=== PATIENT | male | born 1950 | race Two or more races ===

== ENCOUNTER 2020-03-30 13:25 | Inpatient (IN) | payer MEDICARE, OTHER ==
[~2020-03-30] VITALS: Ht 182.9 cm; Wt 75.7 kg
[2020-03-30] MEDS ORDERED: ALBU18HF2 IH (13:34)
[2020-03-30] MEDS ORDERED: SODIUM CHLORIDE 0.9% 1000ML BAG (SEPSIS BOLUS) IV ONE (14:15)
[2020-03-30] MEDS ORDERED: ALBUTEROL (0.083%) 2.5MG/3ML NEB HHN ONE (14:15)
[2020-03-30] MEDS ORDERED: IPRATROPIUM/ALBUTEROL 0.5-3(2.5)MG/3ML NEB HHN ONE (14:15)
[2020-03-30 14:33] LABS: BASOPHILS % 0.3 % (0.0-2.0); HEMATOCRIT. 47.7 % (42.0-52.0); HEMOGLOBIN. 16.5 g/dL (14.0-18.0); MEAN CORPUSCULAR HEMOGLOBIN 32.2 pg (28.0-32.0); MEAN CORPUSCULAR VOLUME 93.1 fL (80.0-94.0); MONOCYTES % 4.2 % (2.0-8.0); NEUTROPHILS % 86.5 % (40.0-76.0); PLATELET 210 x1000/uL (130-400); RED BLOOD CELL COUNT 5.12 mill/uL (4.7-6.1)
[2020-03-30 14:36] LABS: CHLORIDE 107 mEq/L (98-107)
[2020-03-30 14:49] LABS: INR 1.2
[2020-03-30] MEDS ORDERED: DOXYCYCLINE HYCLATE 100MG CAPSULE PO ONE (15:45)
[2020-03-30] MEDS ORDERED: CEFTRIAXONE 1 G PREMIX 50 ML IV ONE (15:45)
[2020-03-30 17:42] LABS: CLARITY URINE CLEAR (CLEAR); COLOR URINE DARK YELLOW (YELLOW); KETONES URINE NEGATIVE (NEGATIVE); LEUKOCYTE ESTERASE URINE TRACE (NEGATIVE); NITRITE URINE NEGATIVE (NEGATIVE); OCCULT BLOOD URINE 2+ (NEGATIVE); PROTEIN URINE 1+ (NEGATIVE); SPECIFIC GRAVITY URINE 1.019 (1.005-1.030)
[2020-03-30] MEDS ORDERED: ONDANSETRON HCL 4MG/2ML INJ IV PRN (18:15)
[2020-03-30] MEDS ORDERED: MORPHINE SULFATE 2 MG/ML CPJ (NOT FOR IM USE) IV PRN (18:15)
[2020-03-30] MEDS ORDERED: DOCUSATE SODIUM 100MG CAPSULE PO PRN (18:15)
[2020-03-30] MEDS ORDERED: DIPHENHYDRAMINE 50MG/ML VIAL IV PRN (18:15)
[2020-03-30] MEDS ORDERED: HYDROCODONE/ACETAMINOPHEN 10/325MG TABLET PO PRN (18:15)
[2020-03-30] MEDS ORDERED: CLONIDINE 0.1MG TABLET PO PRN (18:15)
[2020-03-30] MEDS ORDERED: LORAZEPAM 2MG/ML CPJ IV PRN (18:15)
[2020-03-30] MEDS ORDERED: IPRATROPIUM/ALBUTEROL 0.5-3(2.5)MG/3ML NEB HHN PRN (18:15)
[2020-03-30] MEDS ORDERED: CEFTRIAXONE 1 G PREMIX 50 ML IV SCH (18:15)
[2020-03-30] MEDS ORDERED: GUAIFENESIN 200MG/10ML SUGAR FREE UDC PO PRN (18:15)
[2020-03-30] MEDS ORDERED: AZITHROMYCIN 500 MG in DEXT 5% WATER 250 ML IV SCH (18:15)
[2020-03-30] MEDS ORDERED: ACETAMINOPHEN 325MG TABLET PO PRN (18:15)
[2020-03-30] MEDS ORDERED: MAGNESIUM/ALUMINUM HYDROXIDE/SIMETHICONE 30ML UDC PO PRN (18:15)
[2020-03-30] MEDS: ENOXAPARIN 40MG/0.4ML SYR SUBCUT SCH (19:10)
[2020-03-30 21:05] VITALS: BP 129/87
[2020-03-30] MEDS ORDERED: ALBUTEROL 6.7GM HFA INHALER ORI PRN (22:00)
[2020-03-30] MEDS ORDERED: TAMS-11 PO (22:02)
[2020-03-30] MEDS: SODIUM CHLORIDE 0.9% INJ 3ML FLUSH IVF SCH (23:01)
[2020-03-31] VITALS (7 sets, daily range): BP systolic 93–128; BP diastolic 54–74
[2020-03-31] MEDS: SODIUM CHLORIDE 0.9% INJ 3ML FLUSH IVF SCH ×3 (05:57→22:14)
[2020-03-31 06:22] LABS: HEMATOCRIT. 41.4 % (42.0-52.0); MEAN CORPUSCULAR VOLUME 94.7 fL (80.0-94.0); MEAN PLATELET VOLUME 8.5 fl (7.4-10.4); PLATELET 159 x1000/uL (130-400); RED BLOOD CELL COUNT 4.37 mill/uL (4.7-6.1); RED CELL DISTRIBUTION WIDTH 13.8 % (11.6-14.6)
[2020-03-31 07:33] LABS: CHLORIDE 109 mEq/L (98-107)
[2020-03-31 09:48] LABS: BG BASE EXCESS -5.2 mmol/L (-2.0-2.0); BG CARBOXYHEMOGLOBIN 0.2 % (0.5-1.5); BG FRACTION INSPIRED OXYGEN 100; BG HCO3 ACT 18.5 mmol/L (22.0-26.0); BG METHEMOGLOBIN 0.3 % (0.0-1.5); BG OXYHEMOGLOBIN 98.5 % (94.0-97.0); BG PCO2 31.3 mmHg (35.0-45.0); BG PO2 172.5 mmHg (75.0-100.0); BG SAMPLE SITE RIGHT BRACHIAL; BG TOTAL HEMOGLOBIN 14.5 g/dL (12.0-18.0); BG VENT MODE MASK - NRB
[2020-03-31 10:53] LABS: T4 FREE 0.94 ng/dL (0.76-1.46)
[2020-03-31] MEDS: TAMSULOSIN HCL 0.4MG SR CAPSULE PO SCH (11:58)
[2020-03-31 14:57] LABS: PLATELET ESTIMATE NORMAL
[2020-03-31 17:58] LABS: CREATINE KINASE 353 IU/L (39-308)
[2020-03-31 18:00] LABS: CREATINE KINASE MB FRACTION 3.9 ng/mL (0.5-3.6)
[2020-03-31] MEDS ORDERED: CEFTRIAXONE 1,000 MG in DEXTROSE 5% WATER 50 ML IV SCH (19:00)
[2020-03-31] MEDS: ENOXAPARIN 40MG/0.4ML SYR SUBCUT SCH (19:02)
[2020-03-31] MEDS ORDERED: AZITHROMYCIN 250 MG in DEXT 5% WATER 250 ML IV SCH (20:00)
[2020-03-31] MEDS ORDERED: AZITHROMYCIN 500MG in DEXTROSE 5% WATER 250ML IV SCH (20:00)
[2020-03-31 23:28] LABS: CREATINE KINASE 244 IU/L (39-308)
[2020-03-31 23:29] LABS: CREATINE KINASE MB FRACTION 3.3 ng/mL (0.5-3.6)
[2020-04-01] VITALS (7 sets, daily range): BP systolic 86–116; BP diastolic 5–70
[2020-04-01] MEDS: SODIUM CHLORIDE 0.9% INJ 3ML FLUSH IVF SCH ×3 (06:35→21:23)
[2020-04-01 07:13] LABS: BASOPHILS % 0.5 % (0.0-2.0); EOSINOPHILS % 0.5 % (0.0-5.0); HEMATOCRIT. 39.8 % (42.0-52.0); HEMOGLOBIN. 13.5 g/dL (14.0-18.0); LYMPHOCYTES % 8.8 % (20.0-50.0); MEAN CORPUSCULAR HEMOGLOBIN 32.2 pg (28.0-32.0); MEAN CORPUSCULAR VOLUME 94.8 fL (80.0-94.0); MEAN PLATELET VOLUME 9.7 fl (7.4-10.4); MONOCYTES % 4.8 % (2.0-8.0); NEUTROPHILS % 85.4 % (40.0-76.0); PLATELET 150 x1000/uL (130-400)
[2020-04-01 08:02] LABS: CHLORIDE 108 mEq/L (98-107)
[2020-04-01 08:11] LABS: CREATINE KINASE 156 IU/L (39-308)
[2020-04-01 08:13] LABS: CREATINE KINASE MB FRACTION 2.2 ng/mL (0.5-3.6)
[2020-04-01] MEDS: TAMSULOSIN HCL 0.4MG SR CAPSULE PO SCH (08:42)
[2020-04-01 10:03] LABS: BG BASE EXCESS -1.2 mmol/L (-2.0-2.0); BG CARBOXYHEMOGLOBIN 0.3 % (0.5-1.5); BG DEOXYHEMOGLOBIN 1.6 % (0.0-5.0); BG FRACTION INSPIRED OXYGEN 100; BG HCO3 ACT 22.6 mmol/L (22.0-26.0); BG METHEMOGLOBIN 0.5 % (0.0-1.5); BG OXYGEN SATURATION 98.4 % (92.0-98.5); BG OXYHEMOGLOBIN 97.6 % (94.0-97.0); BG PH 7.427 (7.350-7.450); BG PO2 136.7 mmHg (75.0-100.0); BG SAMPLE SITE LEFT BRACHIAL; BG TOTAL HEMOGLOBIN 13.3 g/dL (12.0-18.0); BG VENT MODE MASK - NRB
[2020-04-01] MEDS ORDERED: ALBUTEROL (0.083%) 2.5MG/3ML NEB HHN PRN (15:00)
[2020-04-01] MEDS ORDERED: MAGNESIUM/ALUMINUM HYDROXIDE/SIMETHICONE 30ML UDC PO PRN (15:15)
[2020-04-01] MEDS ORDERED: DIPHENHYDRAMINE 50MG/ML VIAL IV PRN (15:15)
[2020-04-01] MEDS ORDERED: CLONIDINE 0.1MG TABLET PO PRN (15:15)
[2020-04-01] MEDS ORDERED: GUAIFENESIN 200MG/10ML SUGAR FREE UDC PO PRN (15:15)
[2020-04-01] MEDS ORDERED: MORPHINE SULFATE 2 MG/ML CPJ (NOT FOR IM USE) IV PRN (15:15)
[2020-04-01] MEDS ORDERED: LORAZEPAM 2MG/ML CPJ IV PRN (15:15)
[2020-04-01] MEDS ORDERED: DOCUSATE SODIUM 100MG CAPSULE PO PRN (15:15)
[2020-04-01] MEDS ORDERED: ACETAMINOPHEN 325MG TABLET PO PRN (15:15)
[2020-04-01] MEDS ORDERED: ONDANSETRON HCL 4MG/2ML INJ IV PRN (15:15)
[2020-04-01] MEDS ORDERED: HYDROCODONE/ACETAMINOPHEN 10/325MG TABLET PO PRN (15:15)
[2020-04-01] MEDS ORDERED: VANCOMYCIN 1,750 MG in DEXT 5% WATER 250 ML IV NR (17:00)
[2020-04-01] MEDS ORDERED: SODIUM CHLORIDE 0.9% 500 ML IV ONE (17:30)
[2020-04-01] MEDS: PIPERACILLIN/TAZOBACTAM 3.375 G in DEXT 5% WATER 100 ML IV SCH ×2 (18:09→23:57)
[2020-04-01] MEDS: ENOXAPARIN 40MG/0.4ML SYR SUBCUT SCH (18:09)
[2020-04-01] MEDS: IPRATROPIUM/ALBUTEROL 0.5-3(2.5)MG/3ML NEB HHN SCH (20:07)
[2020-04-01] MEDS: BUDESONIDE 0.5MG/2ML NEB HHN SCH (20:08)
[2020-04-02] VITALS: BP 86/53
[2020-04-02] MEDS: THROAT LOZENGES-BENZOCAINE/MENTH/CETYLPYRD CL LOZENGES MM PRN ×2 (00:05→06:09)
[2020-04-02] MEDS: IPRATROPIUM/ALBUTEROL 0.5-3(2.5)MG/3ML NEB HHN SCH ×4 (01:20→21:41)
[2020-04-02] MEDS ORDERED: VANCOMYCIN 1250MG in DEXTROSE 5% WATER 250ML IV SCH ×2 (03:00→18:00)
[2020-04-02 04:00] VITALS: BP 91/59
[2020-04-02] MEDS: SODIUM CHLORIDE 0.9% INJ 3ML FLUSH IVF SCH ×2 (06:09→21:13)
[2020-04-02] MEDS: PIPERACILLIN/TAZOBACTAM 3.375 G in DEXT 5% WATER 100 ML IV SCH ×3 (06:09→18:01)
[2020-04-02 08:00] VITALS: BP 90/57
[2020-04-02] MEDS: BUDESONIDE 0.5MG/2ML NEB HHN SCH ×2 (08:25→21:41)
[2020-04-02] MEDS: TAMSULOSIN HCL 0.4MG SR CAPSULE PO SCH (09:15)
[2020-04-02 12:00] VITALS: BP 91/56
[2020-04-02] MEDS: BENZONATATE 100MG CAPSULE PO SCH ×2 (13:57→21:13)
[2020-04-02] MEDS: SODIUM CHLORIDE 0.9% 1,000 ML IV SCH (13:57)
[2020-04-02 16:00] VITALS: BP 100/63
[2020-04-02] MEDS: ENOXAPARIN 40MG/0.4ML SYR SUBCUT SCH (18:01)
[2020-04-02 20:00] VITALS: BP 92/42
[2020-04-03] MEDS: PIPERACILLIN/TAZOBACTAM 3.375 G in DEXT 5% WATER 100 ML IV SCH ×4 (00:02→17:54)
[2020-04-03 00:19] VITALS: BP 96/57
[2020-04-03] MEDS: IPRATROPIUM/ALBUTEROL 0.5-3(2.5)MG/3ML NEB HHN SCH ×5 (02:05→23:16)
[2020-04-03 04:00] VITALS: BP 100/58
[2020-04-03 04:21] LABS: BASOPHILS % 0.9 % (0.0-2.0); EOSINOPHILS % 1.2 % (0.0-5.0); HEMATOCRIT. 35.6 % (42.0-52.0); HEMOGLOBIN. 11.9 g/dL (14.0-18.0); LYMPHOCYTES % 14.3 % (20.0-50.0); MEAN CORPUSCULAR HEMOGLOBIN 31.5 pg (28.0-32.0); MEAN CORPUSCULAR VOLUME 94.1 fL (80.0-94.0); MEAN PLATELET VOLUME 9.6 fl (7.4-10.4); MONOCYTES % 6.5 % (2.0-8.0); NEUTROPHILS % 77.1 % (40.0-76.0); PLATELET 205 x1000/uL (130-400); RED BLOOD CELL COUNT 3.78 mill/uL (4.7-6.1); RED CELL DISTRIBUTION WIDTH 13.7 % (11.6-14.6)
[2020-04-03 04:33] LABS: VANCOMYCIN TROUGH 7.4 ug/mL (5.0-10.0)
[2020-04-03] MEDS: SODIUM CHLORIDE 0.9% INJ 3ML FLUSH IVF SCH ×3 (06:03→21:21)
[2020-04-03] MEDS: BENZONATATE 100MG CAPSULE PO SCH ×3 (06:05→21:20)
[2020-04-03 08:02] VITALS: BP 112/70
[2020-04-03] MEDS: TAMSULOSIN HCL 0.4MG SR CAPSULE PO SCH (08:04)
[2020-04-03] MEDS: BUDESONIDE 0.5MG/2ML NEB HHN SCH ×2 (09:45→21:52)
[2020-04-03] MEDS ORDERED: POTASSIUM CHLORIDE 20MEQ TABLET SR PO NR (11:00)
[2020-04-03 12:00] VITALS: BP 113/65
[2020-04-03] MEDS: SODIUM CHLORIDE 0.9% 1,000 ML IV SCH (13:53)
[2020-04-03 16:00] VITALS: BP 112/65
[2020-04-03] MEDS: ENOXAPARIN 40MG/0.4ML SYR SUBCUT SCH (17:54)
[2020-04-03 20:00] VITALS: BP 120/68
[2020-04-04] MEDS: PIPERACILLIN/TAZOBACTAM 3.375 G in DEXT 5% WATER 100 ML IV SCH ×4 (00:32→18:52)
[2020-04-04 00:41] VITALS: BP 104/67
[2020-04-04 04:00] VITALS: BP 97/38
[2020-04-04] MEDS: SODIUM CHLORIDE 0.9% 1,000 ML IV SCH (04:32)
[2020-04-04] MEDS: BENZONATATE 100MG CAPSULE PO SCH ×3 (06:00→22:00)
[2020-04-04] MEDS: SODIUM CHLORIDE 0.9% INJ 3ML FLUSH IVF SCH ×3 (06:04→22:00)
[2020-04-04 06:42] LABS: CHLORIDE 108 mEq/L (98-107)
[2020-04-04 06:52] LABS: HEMATOCRIT. 35.5 % (42.0-52.0); HEMOGLOBIN. 12.1 g/dL (14.0-18.0); MEAN CORPUSCULAR HEMOGLOBIN 31.6 pg (28.0-32.0); MEAN CORPUSCULAR VOLUME 92.7 fL (80.0-94.0); MEAN PLATELET VOLUME 9.1 fl (7.4-10.4); PLATELET 246 x1000/uL (130-400); RED BLOOD CELL COUNT 3.83 mill/uL (4.7-6.1); RED CELL DISTRIBUTION WIDTH 13.9 % (11.6-14.6)
[2020-04-04 07:51] LABS: PLATELET ESTIMATE NORMAL
[2020-04-04 08:00] VITALS: BP 124/79
[2020-04-04] MEDS: TAMSULOSIN HCL 0.4MG SR CAPSULE PO SCH (08:51)
[2020-04-04] MEDS: BUDESONIDE 0.5MG/2ML NEB HHN SCH (09:25)
[2020-04-04] MEDS: IPRATROPIUM/ALBUTEROL 0.5-3(2.5)MG/3ML NEB HHN SCH ×3 (09:26→21:34)
[2020-04-04 12:00] VITALS: BP 127/77
[2020-04-04] MEDS ORDERED: METOPROLOL TARTRATE 5MG/5ML VIAL IV SCH (13:15)
[2020-04-04 14:04] LABS: BG BASE EXCESS 2.8 mmol/L (-2.0-2.0); BG CARBOXYHEMOGLOBIN 0.1 % (0.5-1.5); BG DEOXYHEMOGLOBIN 11.3 % (0.0-5.0); BG FRACTION INSPIRED OXYGEN 21; BG HCO3 ACT 24.7 mmol/L (22.0-26.0); BG METHEMOGLOBIN 0.1 % (0.0-1.5); BG OXYGEN SATURATION 88.7 % (92.0-98.5); BG OXYHEMOGLOBIN 88.5 % (94.0-97.0); BG PCO2 30.1 mmHg (35.0-45.0); BG PH 7.532 (7.350-7.450); BG SAMPLE SITE RIGHT RADIAL; BG TOTAL HEMOGLOBIN 13.7 g/dL (12.0-18.0); BG VENT MODE ROOM AIR
[2020-04-04 16:00] VITALS: BP 112/69
[2020-04-04] MEDS: ENOXAPARIN 40MG/0.4ML SYR SUBCUT SCH (18:52)
[2020-04-04 20:52] VITALS: BP 110/63
[2020-04-05 00:13] VITALS: BP 103/54
[2020-04-05] MEDS: SODIUM CHLORIDE 0.9% 1,000 ML IV SCH (00:37)
[2020-04-05] MEDS: PIPERACILLIN/TAZOBACTAM 3.375 G in DEXT 5% WATER 100 ML IV SCH ×3 (00:37→12:11)
[2020-04-05] MEDS: IPRATROPIUM/ALBUTEROL 0.5-3(2.5)MG/3ML NEB HHN SCH ×3 (02:49→13:41)
[2020-04-05 04:00] VITALS: BP 108/67
[2020-04-05] MEDS: BENZONATATE 100MG CAPSULE PO SCH ×2 (06:00→14:22)
[2020-04-05] MEDS: SODIUM CHLORIDE 0.9% INJ 3ML FLUSH IVF SCH ×2 (06:00→14:22)
[2020-04-05 08:08] VITALS: BP 95/54
[2020-04-05] MEDS: TAMSULOSIN HCL 0.4MG SR CAPSULE PO SCH (08:59)
[2020-04-05] MEDS ORDERED: APIXABAN 5 MG TABLET PO SCH (09:30)
[2020-04-05 12:05] VITALS: BP 115/65
[2020-04-05 12:41] VITALS: BP 115/65
== END 2020-04-05 15:57 | disposition left against medical advice (07) | DRG 871 ==
LOC: ER 13:25 → EDBEDREQ 14:59 → 7WST 15:46 → EDBEDREQSVC 15:49 → EDBEDREQ 15:49 → ENRESERV 19:19 → 7WST 20:57 → 6WST 04-01 01:19
PROVIDERS: ADMIT Internal Medicine; ATTEND Internal Medicine
DX: A41.59 Other Gram-negative sepsis (principal); J96.01 Acute respiratory failure with hypoxia; N17.0 Acute kidney failure with tubular necrosis; J68.0 Bronchitis and pneumonitis due to chemicals, gases, fumes and vapors; E87.6 Hypokalemia; F17.210 Nicotine dependence, cigarettes, uncomplicated; I10 Essential (primary) hypertension; I25.10 Atherosclerotic heart disease of native coronary artery without angina pectoris; I48.0 Paroxysmal atrial fibrillation; N40.0 Benign prostatic hyperplasia without lower urinary tract symptoms; Z20.828 Contact with and (suspected) exposure to other viral communicable diseases; R65.20 Severe sepsis without septic shock; Z59.0 Homelessness; Z79.899 Other long term (current) drug therapy; Z53.29 Procedure and treatment not carried out because of patient's decision for other reasons; B96.1 Klebsiella pneumoniae [K. pneumoniae] as the cause of diseases classified elsewhere
CPT/HCPCS: 36415; 36600; 71045; 71250; 80048; 80053; 80061; 80202; 81003; 82375; 82550; 82553; 82805; 83036; 83605; 83880; 84145; 84439; 84443; 84484; 85025; 85379; 87077; 87186; 87635; 93005; 93306; 93970; 94640; 99291; J0456; J0696; J1650; J2543; J3370; J3490; J7030; J7060; J7626

== ENCOUNTER 2021-05-03 14:34 | Inpatient (IN) | payer MEDICARE, OTHER ==
[~2021-05-03] VITALS: Ht 182.9 cm; Wt 71.9 kg
[~2021-05-03 14:34] MED LIST: ALBU18HF2 IH; TAMS-11 PO
[2021-05-03] MEDS ORDERED: AZITHROMYCIN 500 MG TABLET PO ONE (15:15)
[2021-05-03] MEDS ORDERED: CEFTRIAXONE 1 G PREMIX 50 ML IV ONE (15:15)
[2021-05-03 15:57] LABS: BASOPHILS % 0.2 % (0.0-2.0); EOSINOPHILS % 0.5 % (0.0-5.0); HEMATOCRIT. 40.3 % (42.0-52.0); HEMOGLOBIN. 13.4 g/dL (14.0-18.0); LYMPHOCYTES % 10.8 % (20.0-50.0); MEAN CORPUSCULAR HEMOGLOBIN 31.2 pg (28.0-32.0); MEAN CORPUSCULAR VOLUME 93.3 fL (80.0-94.0); MEAN PLATELET VOLUME 8.1 fl (7.4-10.4); MONOCYTES % 6.5 % (2.0-8.0); PLATELET 215 x1000/uL (130-400); RED BLOOD CELL COUNT 4.32 mill/uL (4.7-6.1); RED CELL DISTRIBUTION WIDTH 14.6 % (11.6-14.6)
[2021-05-03 16:02] LABS: CHLORIDE 106 mEq/L (98-107)
[2021-05-03 16:07] LABS: ETHANOL BLOOD 10 mg/dL
[2021-05-03 16:08] LABS: PROTHROMBIN TIME 10.6 sec (9.6-11.0)
[2021-05-03] MEDS ORDERED: PREDNISONE 20MG TABLET PO ONE (17:00)
[2021-05-03 20:21] LABS: CLARITY URINE CLEAR (CLEAR); COLOR URINE YELLOW (YELLOW); KETONES URINE TRACE (NEGATIVE); LEUKOCYTE ESTERASE URINE NEGATIVE (NEGATIVE); NITRITE URINE NEGATIVE (NEGATIVE); OCCULT BLOOD URINE NEGATIVE (NEGATIVE); PROTEIN URINE TRACE (NEGATIVE); SPECIFIC GRAVITY URINE 1.015 (1.005-1.030)
[2021-05-03 21:40] VITALS: BP 102/68
[2021-05-03 22:45] VITALS: BP 102/68
[2021-05-03] MEDS ORDERED: MAGNESIUM/ALUMINUM HYDROXIDE/SIMETHICONE 30ML UDC PO PRN (23:15)
[2021-05-03] MEDS ORDERED: LORAZEPAM 2MG/ML CPJ IV PRN (23:15)
[2021-05-03] MEDS ORDERED: HYDROCODONE/ACETAMINOPHEN 5/325MG TABLET PO PRN (23:15)
[2021-05-03] MEDS ORDERED: IPRATROPIUM/ALBUTEROL 0.5-3(2.5)MG/3ML NEB NEB PRN (23:15)
[2021-05-03] MEDS ORDERED: ACETAMINOPHEN 650MG SUPP PR PRN (23:15)
[2021-05-03] MEDS ORDERED: ACETAMINOPHEN 325MG TABLET PO PRN (23:15)
[2021-05-03] MEDS ORDERED: GUAIFENESIN 200MG/10ML SUGAR FREE UDC PO PRN (23:15)
[2021-05-03] MEDS ORDERED: MORPHINE SULFATE 2 MG/ML CPJ (NOT FOR IM USE) IV PRN (23:15)
[2021-05-03] MEDS ORDERED: ONDANSETRON HCL 4MG/2ML INJ IV PRN (23:15)
[2021-05-03] MEDS: SODIUM CHLORIDE 0.9% 1,000 ML IV SCH (23:53)
[2021-05-03] MEDS: ZOLPIDEM TARTRATE 5MG TABLET PO PRN (23:54)
[2021-05-04] VITALS: BP 98/60
[2021-05-04 04:00] VITALS: BP 104/63
[2021-05-04 05:58] LABS: CHLORIDE 106 mEq/L (98-107)
[2021-05-04 06:12] LABS: BASOPHILS % 0.1 % (0.0-2.0); HEMATOCRIT. 41.7 % (42.0-52.0); LYMPHOCYTES % 11.5 % (20.0-50.0); MEAN CORPUSCULAR HEMOGLOBIN 30.7 pg (28.0-32.0); MEAN CORPUSCULAR VOLUME 91.5 fL (80.0-94.0); MEAN PLATELET VOLUME 8.7 fl (7.4-10.4); MONOCYTES % 1.3 % (2.0-8.0); NEUTROPHILS % 87.1 % (40.0-76.0); PLATELET 235 x1000/uL (130-400); RED BLOOD CELL COUNT 4.56 mill/uL (4.7-6.1); RED CELL DISTRIBUTION WIDTH 14.1 % (11.6-14.6)
[2021-05-04 06:21] LABS: PHOSPHORUS 2.5 mg/dL (2.5-4.9)
[2021-05-04 06:24] LABS: CREATINE KINASE 205 IU/L (39-308)
[2021-05-04 06:26] LABS: CREATINE KINASE MB FRACTION 4.8 ng/mL (0.5-3.6)
[2021-05-04 08:00] VITALS: BP 105/59
[2021-05-04] MEDS: MULTIVITAMINS,THER W-MINERALS TABLET PO SCH (09:24)
[2021-05-04] MEDS: ENOXAPARIN 40MG/0.4ML SYR SUBCUT SCH (09:24)
[2021-05-04 11:50] LABS: *AMPHETAMINES SCREEN URINE NEGATIVE (NEGATIVE); *BARBITURATES SCREEN URINE NEGATIVE (NEGATIVE); CANNABINOID URINE SCREEN PRESUMTIVE POSITIVE (NEGATIVE)
[2021-05-04 11:53] LABS: METHADONE URINE SCREEN NEGATIVE (NEGATIVE)
[2021-05-04 11:54] LABS: PHENCYCLIDINE URINE SCREEN NEGATIVE (NEGATIVE)
[2021-05-04 11:55] LABS: *BENZODIAZEPINES SCREEN URINE NEGATIVE (NEGATIVE)
[2021-05-04 11:56] LABS: OPIATES URINE SCREEN NEGATIVE (NEGATIVE)
[2021-05-04 11:57] LABS: *COCAINE SCREEN URINE PRESUMTIVE POSITIVE (NEGATIVE)
[2021-05-04] MEDS: TAMSULOSIN HCL 0.4MG SR CAPSULE PO SCH (12:18)
[2021-05-04 12:20] VITALS: BP 112/67
[2021-05-04] MEDS: IPRATROPIUM/ALBUTEROL 0.5-3(2.5)MG/3ML NEB HHN PRN ×3 (13:20→20:24)
[2021-05-04] MEDS ORDERED: NALOXONE HCL 0.4MG/ML VIAL IV PRN (15:45)
[2021-05-04 15:55] VITALS: BP_SYST 111; BP_SYST 115; BP_SYST 116; BP_DIAS 68; BP_DIAS 71; BP_DIAS 73
[2021-05-04 16:26] LABS: CREATINE KINASE 196 IU/L (39-308); CREATINE KINASE MB FRACTION 4.6 ng/mL (0.5-3.6)
[2021-05-04 20:00] VITALS: BP 110/58
[2021-05-04] MEDS: ZOLPIDEM TARTRATE 5MG TABLET PO PRN (21:38)
[2021-05-04] MEDS: SODIUM CHLORIDE 0.9% 1,000 ML IV SCH (21:39)
[2021-05-05] VITALS: BP 106/51
[2021-05-05 04:00] VITALS: BP 104/66
[2021-05-05 08:00] VITALS: BP 124/72
[2021-05-05] MEDS: ENOXAPARIN 40MG/0.4ML SYR SUBCUT SCH (09:00)
[2021-05-05] MEDS: MULTIVITAMINS,THER W-MINERALS TABLET PO SCH (09:24)
[2021-05-05] MEDS: TAMSULOSIN HCL 0.4MG SR CAPSULE PO SCH (09:24)
[2021-05-05] MEDS ORDERED: ALBU18HF2 IH (09:56)
[2021-05-05 10:02] VITALS: BP 124/72
[2021-05-05] MEDS: IPRATROPIUM/ALBUTEROL 0.5-3(2.5)MG/3ML NEB HHN PRN (10:15)
== END 2021-05-05 12:00 | disposition home or self-care (01) | DRG 73 ==
LOC: ER 14:55 → EDBEDREQTM 16:59 → EDBEDREQ 16:59 → ENRESERV 20:32 → 7EST 21:59
PROVIDERS: ADMIT Internal Medicine Nephrology; ATTEND Internal Medicine Nephrology
DX: G90.8 Other disorders of autonomic nervous system (principal); E43 Unspecified severe protein-calorie malnutrition; N17.0 Acute kidney failure with tubular necrosis; F12.90 Cannabis use, unspecified, uncomplicated; F14.90 Cocaine use, unspecified, uncomplicated; F17.210 Nicotine dependence, cigarettes, uncomplicated; I10 Essential (primary) hypertension; Z20.822 Contact with and (suspected) exposure to COVID-19; J44.9 Chronic obstructive pulmonary disease, unspecified; N40.0 Benign prostatic hyperplasia without lower urinary tract symptoms; Z79.899 Other long term (current) drug therapy; Z79.51 Long term (current) use of inhaled steroids; Z68.21 Body mass index [BMI] 21.0-21.9, adult
CPT/HCPCS: 36415; 71045; 80048; 80053; 80305; 80320; 81003; 82550; 82553; 83605; 83735; 83880; 84100; 84484; 85025; 93005; 93306; 94640; 99285; C9803; J0696; J1650; J7030; J7512; U0003; U0005; G0480

== ENCOUNTER 2022-12-05 09:52 | Emergency (ER) | payer MEDICARE, OTHER ==
[~2022-12-05] VITALS: Ht 167.6 cm; Wt 73.0 kg
[2022-12-05] MEDS ORDERED: IPRATROPIUM BROMIDE (0.02%) 0.5MG/2.5ML NEB HHN STA (09:59)
[2022-12-05] MEDS ORDERED: METHYLPREDNISOLONE SOD SUCC 125 MG/2 ML VIAL IV STA (09:59)
[2022-12-05] MEDS ORDERED: ALBUTEROL (0.083%) 2.5MG/3ML NEB HHN SCH (10:00)
[2022-12-05 10:16] LABS: BASOPHILS % 1.2 % (0.0-2.0); EOSINOPHILS % 2.7 % (0.0-5.0); HEMATOCRIT. 43.9 % (42.0-52.0); LYMPHOCYTES % 29.4 % (20.0-50.0); MEAN CORPUSCULAR VOLUME 90.9 fL (80.0-94.0); MEAN PLATELET VOLUME 7.9 fl (7.4-10.4); MONOCYTES % 8.3 % (2.0-8.0); NEUTROPHILS % 58.4 % (40.0-76.0); PLATELET 253 x1000/uL (130-400); RED BLOOD CELL COUNT 4.83 mill/uL (4.7-6.1)
[2022-12-05 10:22] LABS: CHLORIDE 110 mEq/L (98-107)
[2022-12-05 10:27] LABS: INR 1.1; PARTIAL THROMBOPLASTIN TIME 29.4 sec (23.4-31.0); PROTHROMBIN TIME 11.3 sec (9.6-11.0)
[2022-12-05 12:20] VITALS: BP 136/84
[2022-12-05] MEDS ORDERED: ALBUTEROL (0.083%) 2.5MG/3ML NEB HHN ONE (12:45)
[2022-12-05] MEDS ORDERED: ALBU6.7H3 INH (12:49)
[2022-12-05] MEDS ORDERED: P50 MT (12:49)
[2022-12-05] MEDS ORDERED: IPRATROPIUM BROMIDE (0.02%) 0.5MG/2.5ML NEB HHN NR (13:15)
[2022-12-05] MEDS: ALBUTEROL (0.083%) 2.5MG/3ML NEB HHN SCH ×3 (13:21→14:01)
== END 2022-12-05 14:41 | disposition home or self-care (01) ==
LOC: ER 10:08
DX: J44.1 Chronic obstructive pulmonary disease with (acute) exacerbation (principal); I10 Essential (primary) hypertension; F12.10 Cannabis abuse, uncomplicated
CPT/HCPCS: 36415; 71045; 80053; 83880; 84484; 85025; 85610; 85730; 93005; 94640; 96374; 99285; J2930

== ENCOUNTER 2023-06-12 10:22 | Emergency (ER) | payer MEDICARE, OTHER ==
[~2023-06-12] VITALS: Ht 177.8 cm; Wt 79.0 kg
[~2023-06-12 10:22] MED LIST changes: +ALBU6.7H3 INH; +P50 MT
[2023-06-12 10:50] VITALS: BP 155/95; PULSE 84; RESP 19; TEMP 98.6; O2SAT 96
== END 2023-06-12 11:21 | disposition left against medical advice (07) ==
LOC: ER 10:33
DX: R06.02 Shortness of breath (principal); I11.0 Hypertensive heart disease with heart failure; I50.9 Heart failure, unspecified; J44.9 Chronic obstructive pulmonary disease, unspecified; J45.909 Unspecified asthma, uncomplicated; F12.10 Cannabis abuse, uncomplicated
CPT/HCPCS: 99283

== ENCOUNTER 2023-06-12 11:40 | Emergency (ER) | payer MEDICARE, OTHER ==
[~2023-06-12] VITALS: Ht 170.2 cm; Wt 60.0 kg
[2023-06-12 11:53] VITALS: BP 152/89; PULSE 94; RESP 20; TEMP 98.6; O2SAT 94
== END 2023-06-12 17:31 | disposition left against medical advice (07) ==
LOC: ER 11:50
DX: R06.02 Shortness of breath (principal); Z53.21 Procedure and treatment not carried out due to patient leaving prior to being seen by health care provider
CPT/HCPCS: 99281

== ENCOUNTER 2024-02-09 21:19 | Inpatient (IN) | payer MEDICARE, OTHER ==
[~2024-02-09] VITALS: Ht 172.7 cm; Wt 59.0 kg
[2024-02-09] MEDS: IPRATROPIUM BROMIDE (0.02%) 0.5MG/2.5ML NEB HHN STA (21:25)
[2024-02-09] MEDS ORDERED: METHYLPREDNISOLONE SOD SUCC 125MG/2ML (ACT-O-VIAL) IV STA (21:25)
[2024-02-09 22:00] VITALS: RESP 21
[2024-02-09 22:59] LABS: BASOPHILS % 1.2 % (0.0-2.0); EOSINOPHILS % 0.4 % (0.0-5.0); HEMOGLOBIN. 15.7 g/dL (14.0-18.0); LYMPHOCYTES % 19.6 % (20.0-50.0); MEAN CORPUSCULAR HEMOGLOBIN 31.1 pg (28.0-32.0); MEAN CORPUSCULAR HGB CONC 32.8 g/dL (31.0-37.0); MEAN CORPUSCULAR VOLUME 94.8 fL (80.0-94.0); MEAN PLATELET VOLUME 8.1 fl (7.4-10.4); MONOCYTES % 9.1 % (2.0-8.0); NEUTROPHILS % 69.7 % (40.0-76.0); PLATELET 320 x1000/uL (130-400); RED BLOOD CELL COUNT 5.06 mill/uL (4.7-6.1); WHITE BLOOD COUNT 5.9 x1000/uL (4.5-11.0)
[2024-02-09 23:06] LABS: CHLORIDE 104 mEq/L (98-107); POTASSIUM 4.4 mEq/L (3.5-5.1); SODIUM 142 mEq/L (136-145)
[2024-02-09 23:07] LABS: CALCIUM 9.3 mg/dL (8.7-10.4); CARBON DIOXIDE 31 mEq/L (21-32)
[2024-02-09 23:12] LABS: CREATININE 1.3 mg/dL (0.6-1.3); GLUCOSE 100 mg/dL (70-105); UREA NITROGEN BLOOD 29 mg/dL (9-23)
[2024-02-09 23:14] LABS: ALANINE AMINOTRANSFERASE 23 IU/L (10-49); ALBUMIN 4.3 g/dL (3.2-4.8); ASPARTATE AMINOTRANSFERASE 19 IU/L (<34); BILIRUBIN DIRECT 0.1 mg/dL (<=3.0); BILIRUBIN TOTAL 0.5 mg/dL (0.1-1.0); TROPONIN I HIGH SENSITIVITY 11 ng/L (3.0-53)
[2024-02-09 23:15] LABS: PROTEIN TOTAL 6.6 g/dL (6.0-8.3)
[2024-02-09 23:32] VITALS: RESP 20
[2024-02-09] MEDS: ALBUTEROL (0.083%) 2.5MG/3ML NEB HHN SCH (23:32)
[2024-02-09] MEDS: METHYLPREDNISOLONE SOD SUCC 125MG/2ML (ACT-O-VIAL) IV NR (23:33)
[2024-02-09] MEDS: MAGNESIUM 2 G PREMIX 50 ML IV ONE (23:33)
[2024-02-10] VITALS (15 sets, daily range): BP systolic 90–134; BP diastolic 53–80; PULSE 72–93; RESP 17–30; TEMP 97.5–98.3
[2024-02-10] MEDS ORDERED: IPRATROPIUM/ALBUTEROL 0.5-3(2.5)MG/3ML NEB HHN PRN (01:15)
[2024-02-10] MEDS ORDERED: CLONIDINE 0.1MG TABLET PO PRN ×2 (01:15)
[2024-02-10] MEDS ORDERED: ONDANSETRON HCL 4MG/2ML INJ IV PRN (01:15)
[2024-02-10] MEDS: CEFTRIAXONE 1GM/50ML 50 ML IV NR (03:57)
[2024-02-10] MEDS: AMLODIPINE 5MG TABLET PO SCH (09:00)
[2024-02-10] MEDS: IPRATROPIUM BROMIDE (0.02%) 0.5MG/2.5ML NEB HHN SCH (09:46)
[2024-02-10] MEDS: ALBUTEROL (0.083%) 2.5MG/3ML NEB HHN SCH (09:46)
[2024-02-10] MEDS: METHYLPREDNISOLONE 4MG TABLET PO SCH (11:49)
[2024-02-10] MEDS: DEXT 5%/0.9% NACL 1,000 ML IV SCH (19:45)
[2024-02-10] MEDS: MIDODRINE HCL 5MG TABLET PO SCH (19:45)
[2024-02-10] MEDS: GUAIFENESIN 600MG ER TABLET PO SCH (20:51)
[2024-02-10] MEDS: FAMOTIDINE 20MG TABLET PO SCH (20:52)
[2024-02-10] MEDS: TAMSULOSIN HCL 0.4MG SR CAPSULE PO SCH (20:53)
[2024-02-10] MEDS: IPRATROPIUM/ALBUTEROL 0.5-3(2.5)MG/3ML NEB HHN SCH (21:17)
[2024-02-10] MEDS: BUDESONIDE 0.5MG/2ML NEB HHN SCH (21:17)
[2024-02-11] VITALS (13 sets, daily range): BP systolic 74–104; BP diastolic 48–76; PULSE 68–87; RESP 16–32; TEMP 96.9–97.9; O2SAT 100
[2024-02-11 08:54] LABS: BG BASE EXCESS 4.8 mmol/L (-2.0-2.0); BG CARBOXYHEMOGLOBIN 0.1 % (0.5-1.5); BG DEOXYHEMOGLOBIN 1.2 % (0.0-5.0); BG FRACTION INSPIRED OXYGEN 32; BG HCO3 ACT 30.1 mmol/L (22.0-26.0); BG OXYGEN SATURATION 98.8 % (92.0-98.5); BG OXYHEMOGLOBIN 98.7 % (94.0-97.0); BG PCO2 47.1 mmHg (35.0-45.0); BG PH 7.423 (7.350-7.450); BG PO2 130.7 mmHg (75.0-100.0); BG SAMPLE SITE RIGHT BRACHIAL; BG TOTAL HEMOGLOBIN 12.7 g/dL (12.0-18.0); BG VENT MODE NASAL CANNULA
[2024-02-12] VITALS: BP 96/79; PULSE 70; RESP 22; TEMP 99
[2024-02-12 04:00] VITALS: BP 88/62; PULSE 80; RESP 19; TEMP 98.7
[2024-02-12 08:00] VITALS: BP 101/67; PULSE 70; RESP 23; TEMP 97.5
[2024-02-12 10:34] VITALS: PULSE 89; RESP 16; O2SAT 99
[2024-02-12 12:00] VITALS: BP 103/64; PULSE 75; RESP 26; TEMP 97
[2024-02-12] MEDS ORDERED: AZIT500T8 MT (12:33)
[2024-02-12] MEDS ORDERED: P50 MT (12:33)
[2024-02-12] MEDS ORDERED: ATOR20TA65 MT (12:38)
[2024-02-12 14:12] VITALS: BP 135/62; PULSE 75; TEMP 97; O2SAT 98
== END 2024-02-12 14:00 | disposition home health service (06) | DRG 189 ==
LOC: ER 21:19 → 5EST 02-10 00:27 → EDBEDREQ 02-10 00:34 → EDBEDREQTM 02-10 00:34
PROVIDERS: ADMIT Hospitalist; ATTEND Hospitalist
PROC: 5A09357 Assistance with Respiratory Ventilation, Less than 24 Consecutive Hours, Continuous Positive Airway Pressure (ICD-10-PCS; 2024-02-09)
PROC: 5A09357 Assistance with Respiratory Ventilation, Less than 24 Consecutive Hours, Continuous Positive Airway Pressure (ICD-10-PCS; principal; 2024-02-10)
DX: J96.21 Acute and chronic respiratory failure with hypoxia (principal); J44.1 Chronic obstructive pulmonary disease with (acute) exacerbation; J96.22 Acute and chronic respiratory failure with hypercapnia; N40.0 Benign prostatic hyperplasia without lower urinary tract symptoms; I10 Essential (primary) hypertension; F19.10 Other psychoactive substance abuse, uncomplicated; E78.5 Hyperlipidemia, unspecified; Z79.899 Other long term (current) drug therapy; Z82.0 Family history of epilepsy and other diseases of the nervous system; Z87.891 Personal history of nicotine dependence; Z99.81 Dependence on supplemental oxygen
CPT/HCPCS: 36415; 36600; 71045; 80048; 80076; 82375; 82805; 83880; 84484; 85025; 93005; 94640; 94660; 99291; J0696; J2919; J3475; J7042; J7509; J7626

== ENCOUNTER 2024-03-01 01:59 | Inpatient (IN) | payer MEDICARE, OTHER ==
[~2024-03-01] VITALS: Ht 172.7 cm; Wt 67.0 kg
[~2024-03-01 01:59] MED LIST changes: +ATOR20TA65 MT; +AZIT500T8 MT
[2024-03-01 02:55] LABS: BASOPHILS % 1.2 % (0.0-2.0); EOSINOPHILS % 0.5 % (0.0-5.0); HEMATOCRIT. 46.4 % (42.0-52.0); HEMOGLOBIN. 14.9 g/dL (14.0-18.0); LYMPHOCYTES % 17.8 % (20.0-50.0); MEAN CORPUSCULAR HEMOGLOBIN 30.5 pg (28.0-32.0); MEAN CORPUSCULAR HGB CONC 32.2 g/dL (31.0-37.0); MEAN CORPUSCULAR VOLUME 94.7 fL (80.0-94.0); MEAN PLATELET VOLUME 7.7 fl (7.4-10.4); MONOCYTES % 8.1 % (2.0-8.0); NEUTROPHILS % 72.4 % (40.0-76.0); PLATELET 293 x1000/uL (130-400); RED CELL DISTRIBUTION WIDTH 14.5 % (11.6-14.6); WHITE BLOOD COUNT 6.3 x1000/uL (4.5-11.0)
[2024-03-01 03:02] LABS: CHLORIDE 99 mEq/L (98-107); POTASSIUM 5.2 mEq/L (3.5-5.1); SODIUM 135 mEq/L (136-145)
[2024-03-01 03:03] LABS: CALCIUM 9.4 mg/dL (8.7-10.4); CARBON DIOXIDE 29 mEq/L (21-32)
[2024-03-01 03:08] LABS: CREATININE 1.1 mg/dL (0.6-1.3); GLUCOSE 120 mg/dL (70-105); UREA NITROGEN BLOOD 29 mg/dL (9-23)
[2024-03-01 03:10] LABS: ALANINE AMINOTRANSFERASE 122 IU/L (10-49); ALBUMIN 4.6 g/dL (3.2-4.8); ASPARTATE AMINOTRANSFERASE 48 IU/L (<34); BILIRUBIN TOTAL 0.5 mg/dL (0.1-1.0); TROPONIN I HIGH SENSITIVITY 25 ng/L (3.0-53)
[2024-03-01 03:11] LABS: PROTEIN TOTAL 6.8 g/dL (6.0-8.3)
[2024-03-01 03:24] LABS: BILIRUBIN DIRECT < 0.1 mg/dL (<=3.0)
[2024-03-01] MEDS: IPRATROPIUM/ALBUTEROL 0.5-3(2.5)MG/3ML NEB HHN NR ×2 (03:29→04:02)
[2024-03-01 03:30] VITALS: PULSE 87; RESP 23; O2SAT 95
[2024-03-01 03:36] LABS: BG BASE EXCESS 0.7 mmol/L (-2.0-2.0); BG CARBOXYHEMOGLOBIN 2.4 % (0.5-1.5); BG DEOXYHEMOGLOBIN 1.3 % (0.0-5.0); BG HCO3 ACT 27.3 mmol/L (22.0-26.0); BG METHEMOGLOBIN 0.2 % (0.0-1.5); BG OXYGEN SATURATION 98.7 % (92.0-98.5); BG OXYHEMOGLOBIN 96.1 % (94.0-97.0); BG PCO2 51.1 mmHg (35.0-45.0); BG PH 7.346 (7.350-7.450); BG PO2 135.8 mmHg (75.0-100.0); BG SAMPLE SITE RIGHT RADIAL; BG TOTAL HEMOGLOBIN 15.2 g/dL (12.0-18.0)
[2024-03-01] MEDS: ALBUTEROL (0.083%) 2.5MG/3ML NEB HHN SCH (04:00)
[2024-03-01 04:08] VITALS: PULSE 87
[2024-03-01] MEDS: DEXAMETHASONE 2MG TABLET PO NR (04:11)
[2024-03-01 04:19] VITALS: PULSE 87; RESP 20
[2024-03-01 04:22] LABS: CHLORIDE 97 mEq/L (98-107); POTASSIUM 4.7 mEq/L (3.5-5.1); SODIUM 135 mEq/L (136-145)
[2024-03-01 04:23] LABS: CARBON DIOXIDE 33 mEq/L (21-32)
[2024-03-01 04:24] LABS: CALCIUM 9.2 mg/dL (8.7-10.4)
[2024-03-01 04:29] LABS: CREATININE 1.2 mg/dL (0.6-1.3); GLUCOSE 125 mg/dL (70-105); UREA NITROGEN BLOOD 29 mg/dL (9-23)
[2024-03-01] MEDS: FUROSEMIDE 40MG/4ML VIAL IV NR (04:30)
[2024-03-01] MEDS: DEXTROSE 50% WATER 50ML SYRINGE IV NR (04:30)
[2024-03-01] MEDS: INSULIN REGULAR (HUMULIN R) 1000UNITS/10ML VIAL IV NR (04:30)
[2024-03-01 04:45] VITALS: PULSE 86; RESP 18
[2024-03-01] MEDS ORDERED: MAGNESIUM/ALUMINUM HYDROXIDE/SIMETHICONE 30ML UDC PO PRN (07:00)
[2024-03-01] MEDS ORDERED: IPRATROPIUM/ALBUTEROL 0.5-3(2.5)MG/3ML NEB HHN PRN (07:00)
[2024-03-01] MEDS ORDERED: CLONIDINE 0.1MG TABLET PO PRN (07:00)
[2024-03-01] MEDS ORDERED: HYDROCODONE/ACETAMINOPHEN 5/325MG TABLET PO PRN (07:00)
[2024-03-01] MEDS ORDERED: ONDANSETRON HCL 4MG/2ML INJ IV PRN (07:00)
[2024-03-01] MEDS ORDERED: ACETAMINOPHEN 325MG TABLET PO PRN (07:00)
[2024-03-01] MEDS ORDERED: NALOXONE HCL 0.4MG/ML VIAL IV PRN (07:00)
[2024-03-01] MEDS ORDERED: OMEPRAZOLE 20MG CAPSULE EXTENDED RELEASE PO SCH (07:50)
[2024-03-01] MEDS: METHYLPREDNISOLONE SOD SUCC 40MG/ML (ACT-O-VIAL) IV SCH (07:54)
[2024-03-01] MEDS: PANTOPRAZOLE 40MG DR TABLET PO SCH (07:54)
[2024-03-01] MEDS: ENOXAPARIN 40MG/0.4ML SYR SUBCUT SCH (09:07)
[2024-03-01 17:10] VITALS: BP 108/66; PULSE 87; RESP 22; TEMP 98.4
[2024-03-01] MEDS ORDERED: IPRATROPIUM/ALBUTEROL 0.5-3(2.5)MG/3ML NEB HHN SCH (18:00)
== END 2024-03-01 18:50 | disposition left against medical advice (07) | DRG 190 ==
LOC: ER 01:59 → 5WST 04:08 → 6EST 18:24
PROVIDERS: ADMIT Family Medicine Adult Medicine; ATTEND Family Medicine Adult Medicine
DX: J44.1 Chronic obstructive pulmonary disease with (acute) exacerbation (principal); J96.01 Acute respiratory failure with hypoxia; J96.02 Acute respiratory failure with hypercapnia; J68.0 Bronchitis and pneumonitis due to chemicals, gases, fumes and vapors; F14.10 Cocaine abuse, uncomplicated; F12.10 Cannabis abuse, uncomplicated; I10 Essential (primary) hypertension; N40.0 Benign prostatic hyperplasia without lower urinary tract symptoms; Y92.89 Other specified places as the place of occurrence of the external cause; Z87.891 Personal history of nicotine dependence; Z99.81 Dependence on supplemental oxygen; Z71.51 Drug abuse counseling and surveillance of drug abuser
CPT/HCPCS: 36415; 36600; 71045; 80048; 80076; 82375; 82805; 82962; 83880; 84484; 85025; 93005; 94640; 99285; J1650; J1815; J1940; J2920; J8540